=== PATIENT | female | born 2000 | race Caucasian/White ===

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

== ENCOUNTER 2018-03-13 05:42 | Emergency (ER) | payer OTHER ==
[~2018-03-13] VITALS: Ht 165.1 cm; Wt 120.7 kg
[2018-03-13 05:49] VITALS: Ht 165.1 cm; Wt 120.7 kg
[2018-03-13 06:03] VITALS: BP 119/79
== END 2018-03-13 08:23 | disposition home or self-care (01) ==
LOC: ED 05:42
DX: J98.01 Acute bronchospasm (principal); E66.01 Morbid (severe) obesity due to excess calories
CPT/HCPCS: J2930; J7613; J7644

== ENCOUNTER 2018-04-02 16:43 | Emergency (ER) | payer OTHER ==
[~2018-04-02] VITALS: Ht 165.1 cm; Wt 118.4 kg
[2018-04-02 17:00] VITALS: Ht 165.1 cm; Wt 118.4 kg
[2018-04-02 18:12] LABS: BASOPHIL % 0.1 % (0-2); PLATELET COUNT 186 x10^3mcL (130-400); RED CELL DISTRIBUTION WIDTH 14.3 % (11.5-14.5)
[2018-04-02 18:23] LABS: CALCIUM 8.4 mg/dL (8.5-10.1); CARBON DIOXIDE 27.3 mmol/L (21-32); CHLORIDE SERUM 105 mmol/L (98-107); CREATININE SERUM 0.8 mg/dL (0.6-1.0); GFR1 > 60 mL/min; GLUCOSE SERUM 82 mg/dL (74-106); POTASSIUM SERUM 3.8 mmol/L (3.5-5.1); SODIUM SERUM 142 mmol/L (136-145)
[2018-04-02 18:27] LABS: ALBUMIN 3.7 g/dL (3.4-5.0); ALKALINE PHOSPHATASE 46 U/L (46-116); ALT/SGPT 26 U/L (14-59); AST/SGOT 28 U/L (15-37); LIPASE 47 IU/L (73-393); TOTAL PROTEIN, SERUM 7.3 g/dL (6.4-8.2)
[2018-04-02 19:20] VITALS: BP 127/75
== END 2018-04-02 19:20 | disposition home or self-care (01) ==
LOC: ED 16:43
PROVIDERS: Emergency Medicine
DX: R10.9 Unspecified abdominal pain (principal); R11.2 Nausea with vomiting, unspecified; R19.7 Diarrhea, unspecified
CPT/HCPCS: 36415; J2550